=== PATIENT | female | born 1955 | race Caucasian/White ===

== ENCOUNTER → 2021-01-26 | Outpatient (CLI) | payer MEDICARE, OTHER | LOC: OPSV 01-14 13:00 | DX: M81.0 Age-related osteoporosis without current pathological fracture (principal); I49.9 Cardiac arrhythmia, unspecified; M19.90 Unspecified osteoarthritis, unspecified site; I25.10 Atherosclerotic heart disease of native coronary artery without angina pectoris; F32.9 Major depressive disorder, single episode, unspecified; I10 Essential (primary) hypertension; E78.00 Pure hypercholesterolemia, unspecified; K91.2 Postsurgical malabsorption, not elsewhere classified; Z87.891 Personal history of nicotine dependence; Z87.81 Personal history of (healed) traumatic fracture | CPT/HCPCS: 96372 ==

== ENCOUNTER → 2021-10-28 | Outpatient (CLI) | payer MEDICARE, OTHER | LOC: RT 13:23 | DX: R09.02 Hypoxemia (principal); S22.41XA Multiple fractures of ribs, right side, initial encounter for closed fracture | CPT/HCPCS: 36600; 71046; 82803 ==